=== PATIENT | male | born 1975 | race Caucasian/White ===

== ENCOUNTER 2017-06-23 12:52 | Day surgery (SDC) | payer BC ==
[~2017-06-23] VITALS: Ht 195.6 cm; Wt 112.7 kg
[~2017-06-23 12:52] MED LIST: ACET500; CIPR500 PO; IBUP200; NAPR500; RXPROM25 PO
[2017-06-23] MEDS ORDERED: MOMENI (13:06)
== END 2017-06-23 14:09 | disposition home or self-care (01) ==
LOC: ORSCSDS 12:52
PROVIDERS: Anesthesiology
PROC: 3E0R33Z Introduction of Anti-inflammatory into Spinal Canal, Percutaneous Approach (ICD-10-PCS; principal; 2017-06-23 14:15)
DX: M50.122 Cervical disc disorder at C5-C6 level with radiculopathy (principal); E78.5 Hyperlipidemia, unspecified; E66.9 Obesity, unspecified; Z68.29 Body mass index [BMI] 29.0-29.9, adult; Z87.891 Personal history of nicotine dependence; Z79.899 Other long term (current) drug therapy
CPT/HCPCS: J1040; J2250; J3010; J7040